=== PATIENT | male | born 1950 | race Caucasian/White ===

== ENCOUNTER 2016-12-02 11:31 | Emergency (ER) | payer OTHER ==
[~2016-12-02] VITALS: Ht 180.3 cm; Wt 68.0 kg
[~2016-12-02 11:31] MED LIST: ASPIRIN PO; ASPIRIN81 MG; BACLOFEN20 M1 PO; CENTRUM SILVER PO; CIALIS5 MG PO; CLOPIDOGREL75 MG PO; FISH OIL 1,0001 CAP; HYDRODIURIL PO; LIPITOR80 MG PO; LODINE PO; LOPRESSOR PO; MULTI VITAMIN1 EACH PO; NORVASC PO; PRAVACHOL PO; PRINIVIL10 MG; VASOTEC PO; VICODIN PO; VITAMIN D 4001 UDTAB PO; VITAMIN D1000 UNIT PO; WALMART PHARMACY; ZANAFLEX PO
[2016-12-02] MEDS ORDERED: PATIENT'S PHARMACY (11:49)
[2016-12-02] MEDS ORDERED: LIPITOR80 MG PO (11:50)
[2016-12-02] MEDS ORDERED: CLOPIDOGREL75 MG PO (11:50)
[2016-12-02] MEDS ORDERED: VITAMIN D1000 UNIT PO (11:50)
[2016-12-02] MEDS ORDERED: ASPIRIN81 M2 PO (11:50)
[2016-12-02] MEDS ORDERED: BACLOFEN20 M1 PO (11:50)
[2016-12-02] MEDS ORDERED: FISH OIL 1,0001 EAC3 PO (11:51)
[2016-12-02] MEDS ORDERED: HYDROCHLOROTHIA25 MG PO (11:51)
[2016-12-02] MEDS ORDERED: MULTIVITAMINS1 EAC3 PO (11:51)
[2016-12-02] MEDS ORDERED: LISINOPRIL PO (11:51)
[2016-12-02] MEDS ORDERED: LOPRESSOR PO (11:51)
[2016-12-02] MEDS ORDERED: CIALIS5 MG PO (11:51)
[2016-12-02 12:11] LABS: POC - CKMB 1.3 ng/mL (0.0-7.9); POC - TROPONIN <0.05 ng/mL (<=0.05)
== END 2016-12-02 12:25 | disposition home or self-care (01) ==
LOC: CED 11:31
PROVIDERS: Emergency Medicine
DX: R51 Headache (principal); Z90.49 Acquired absence of other specified parts of digestive tract; Z88.5 Allergy status to narcotic agent; Z88.0 Allergy status to penicillin; Z88.8 Allergy status to other drugs, medicaments and biological substances
CPT/HCPCS: 36415; 82553; 84484; 99284

== ENCOUNTER 2017-01-01 11:23 | Emergency (ER) | payer OTHER ==
[~2017-01-01] VITALS: Ht 180.3 cm; Wt 71.7 kg
--- NOTE | ~2017-01-01 | CT4 ---
[facility] A Service of [facility] & [facility] / [facility] RADIOLOGY TEXT RESULTS PATIENT: RENETTA IRWIN LOCATION: [facility] : 46 UNIT #: [id number] AGE: [address]: Tod Moe MD SEX: M ORDER DR: [id number] [facility] [address] [place], [place] [address] [id number] MR#: [id number] #: [id number] NAME: RENETTA IRWIN : 1950 SEX: M STUDY DATE/TIME: 01/01/2017 12:54 UNIT: [facility] ROOM: STUDY DESCRIPTION: CT Abd and Pelv Wo Cont Attending Physician: Tod Moe M.D. Ordering Physician: Tod Moe M.D. Primary Care Physician: Zina Bautista M.D. MEDICAL IMAGING REPORT This report is preliminary unless electronic signature is present EXAM CT abdomen and pelvis without IV contrast. COMPARISON None. INDICATIONS 66-year-old male with left-sided flank and abdominal pain for [address] imaging of the abdomen and pelvis was performed without IV contrast. Coronal and sagittal reformats were constructed. Lack of IV contrast limits evaluation of adenopathy, vasculature and viscera. This CT exam was performed with one or more of the following radiation dose reduction techniques: automatic exposure control, adjustment of mA and/or kV according to patient size, and iterative reconstruction. Small fat-containing umbilical hernia. Multilevel moderate degenerative facet disease of the lumbar spine. No acute fractures or suspicious osseous lesions. Small posterior disc protrusions at L2-L3 and L5-S1. Mild dextroscoliosis centered at the thoracolumbar junction. No acute fractures or suspicious osseous lesions. Right-sided coronary artery stent noted. There is also right side coronary artery calcification. Small pneumatocele right lower lobe. No acute findings in the lower chest. Unenhanced liver, gallbladder, pancreas, spleen, and adrenal glands are unremarkable. Right kidney is within normal limits. There is marked left hydronephrosis and moderate left perinephric stranding, and there is moderate proximal left hydroureter due to a proximal obstructing calculus in the ureter measuring up to 4 mm. Urinary bladder is within normal limits. There are dense calcifications within the prostate gland, nonspecific finding, perhaps related to remote prostatitis. The prostate gland is top [facility]. [facility] [place] A Service of [facility] & [facility] / [facility] RADIOLOGY TEXT RESULTS PATIENT: RENETTA IRWIN LOCATION: [facility] : 46 UNIT #: [id number] AGE: [address]: Tod Moe MD SEX: M ORDER DR: normal in size measuring up to 4.4 cm transverse. No bowel obstruction. The appendix is not definitely seen and may be surgically absent. No secondary findings of acute appendicitis. The dense calcifications of the iliac arteries and at the origins of the celiac and bilateral renal arteries. No free fluid or pneumoperitoneum. Scattered retroperitoneal lymph nodes on the left at the level of the kidney are likely reactive. These are subcentimeter in size. IMPRESSION 1. Severe left hydronephrosis and proximal left hydroureter due to a proximal obstructing 4 mm calculus in the left ureter. 2. Multilevel posterior disc protrusions of the lumbar spine as described in the body of the report. 3. Nonspecific coarse calcification within the prostate gland with top normal size of the prostate gland. This is a nonspecific finding perhaps reflecting remote prostatitis. Consider correlation with PSA to exclude the possibility of a neoplasm. 4. Diffuse arterial calcifications in the abdomen and pelvis. Prior coronary artery stenting. Dictated by... Pavan White M.D. THIS IS AN ELECTRONICALLY VERIFIED REPORT Pavan White M.D. at 01/05/2017 11:44 AM RAJESH/oxana TD: 01/01/2017 16:18 JOB #: [id number] MEDICAL IMAGING REPORT Page 1 of 1 COPY
[~2017-01-01 11:23] MED LIST changes: +ASPIRIN81 M2 PO; +FISH OIL 1,0001 EAC3 PO; +HYDROCHLOROTHIA25 MG PO; +LISINOPRIL PO; +MULTIVITAMINS1 EAC3 PO; +PATIENT'S PHARMACY
[2017-01-01 12:39] LABS: BASOPHIL# 0.1 X10e3 (0-0.3); BASOPHIL% 0.6 % (0-2.5); EOSINOPHIL# 0.2 X10e3 (0-0.7); EOSINOPHIL% 1.4 % (0.0-7.0); HEMATOCRIT 44.5 % (38.0-50.0); HEMOGLOBIN 14.9 gm/dL (13.0-16.0); LYMPHOCYTE# 2.9 X10e3 (1.0-3.5); MEAN CELL VOLUME 90.1 FL (83-96); MEAN CORPUSCULAR HEMOGLOBIN 30.2 PG (28-34); MEAN CORPUSCULAR HGB CONC 33.6 g/dL (30-36); MEAN PLATELET VOLUME 9.4 FL (6.5-11.5); MONOCYTE# 1.5 X10e3 (0-1.0); MONOCYTE% 9.5 % (3.0-12.0); NEUTROPHIL# 10.6 X10e3 (1.5-7.1); NEUTROPHIL% 69.5 % (40-75); PLATELET COUNT 187 X10e3 (140-420); RED BLOOD COUNT 4.94 X10e (3.90-5.60); WHITE BLOOD COUNT 15.3 X10e3 (4.0-10.5)
[2017-01-01 12:41] LABS: DIFF IND YES
[2017-01-01 12:54] LABS: PLATELET ESTIMATE NORMAL (NORMAL)
[2017-01-01 13:04] LABS: ALBUMIN SERUM 4.5 g/dL (3.5-5.0); BILIRUBIN, DIRECT 0.2 mg/dL (0.0-0.2); BILIRUBIN,INDIRECT 1.2 mg/dL (0.0-0.9); BILIRUBIN,TOTAL 1.4 mg/dL (0.2-2.0); BUN/CREATININE RATIO 17.27; CALCIUM SERUM 9.5 mg/dL (8.4-10.2); CREATININE SERUM 1.1 mg/dL (0.6-1.4); GLOM FILT RATE Estimated 68.6 mL/min (>60); POTASSIUM 3.4 mmol/L (3.5-5.1); PROTEIN TOTAL SERUM 7.8 g/dL (6.0-8.3)
[2017-01-01 13:37] LABS: URINE SOURCE CLEAN CATCH
[2017-01-01 13:43] LABS: URINE APPEARANCE CLEAR; URINE BILIRUBIN NEG (NEG); URINE BLOOD 3+ (NEG); URINE COLOR YELLOW; URINE GLUCOSE 100 MG/DL (NEG); URINE KETONE NEG (NEG); URINE LEUKOCYTE ESTERASE TRACE (NEG); URINE NITRATE NEG (NEG); URINE PH 6.5 (5-8); URINE PROTEIN NEG (NEG); URINE SPECIFIC GRAVITY 1.018 (1.003-1.035)
[2017-01-01 13:47] LABS: URBCS1 AUWI 100-200 /[HPF] (0-2); URINE BACTERIA AUWI NEG (NEGATIVE); URINE SQUAMOUS EPITHELIAL CELL NONE SEEN /[HPF]
[2017-01-01 13:50] LABS: CULTURE INDICATED? NO
== END 2017-01-01 15:30 | disposition home or self-care (01) ==
LOC: CED 11:23
PROVIDERS: Emergency Medicine
DX: N13.2 Hydronephrosis with renal and ureteral calculous obstruction (principal); I25.2 Old myocardial infarction; Z79.82 Long term (current) use of aspirin; Z79.899 Other long term (current) drug therapy; Z88.5 Allergy status to narcotic agent; Z88.7 Allergy status to serum and vaccine; Z88.8 Allergy status to other drugs, medicaments and biological substances
CPT/HCPCS: 36415; 74176; 80048; 80076; 81003; 85025; 96361; 96374; 99284; J1885